=== PATIENT | male | born 1945 | race Caucasian/White ===

== ENCOUNTER 2024-04-14 05:59 | Day surgery (SDC) | payer OTHER ==
[~2024-04-14] VITALS: Ht 175.3 cm; Wt 76.7 kg
[~2024-04-14 05:59] MED LIST: ECOT81TA5 PO; ELIQ5TAB PO; HYDR12CA PO; LISI20TA33 PO; NITR0.4S14 SL; PANT40TA29 PO; PRAV80TA2 PO
[2024-04-14] MEDS ORDERED: ATROPINE SULFATE 1% OPHTH SOLN 2ML BTL OD SCH (06:00)
[2024-04-14] MEDS ORDERED: PHENYLEPHRINE 2.5% OPHTH SOL 2ML OD SCH (06:00)
[2024-04-14] MEDS ORDERED: PHENYLEPHRINE 10% OPHTH SOL 5ML OD PRN (06:00)
[2024-04-14] MEDS ORDERED: LIDOCAINE 3.5 % 1ML OPHTH TOPICAL GEL OU ONE (06:00)
[2024-04-14] MEDS ORDERED: TROPICAMIDE 1% OPHTH SOLN 15ML OD SCH (06:00)
[2024-04-14] MEDS ORDERED: OFLOXACIN 0.3 % (OCUFLOX) OPTH SOL 5ML OD ONE (06:00)
[2024-04-14] MEDS ORDERED: MIDAZOLAM INJ 2MG/2ML VIAL As Ordered ONE (07:39)
[2024-04-14] MEDS ORDERED: fentaNYL 100 MCG/2 ML INJECTION As Ordered ONE (07:39)
[2024-04-14] MEDS: BSS IRRIG/VANCO(10MG)/TOBRA(5MG)/EPINEPH(1:1000-0.5CC)500ML BAG-ORONLY As Ordered ONE (07:55)
[2024-04-14] MEDS: LIDOCAINE 1% SDV 5ML VIAL As Ordered ONE (07:55)
[2024-04-14] MEDS: CEFUROXIME 1MG/0.1ML INTRACAMERAL INJ As Ordered ONE (07:59)
[2024-04-14 08:05] VITALS: BP 158/83; TEMP 96.6; O2SAT 98
== END 2024-04-14 08:20 | disposition home or self-care (01) ==
LOC: M SDC 05:59
PROVIDERS: ATTEND Ophthalmology
DX: H25.11 Age-related nuclear cataract, right eye (principal); I25.10 Atherosclerotic heart disease of native coronary artery without angina pectoris; Z95.5 Presence of coronary angioplasty implant and graft; Z79.899 Other long term (current) drug therapy; Z79.01 Long term (current) use of anticoagulants; Z79.82 Long term (current) use of aspirin
CPT/HCPCS: 66984; J0697; J2250; J3010; V2632

== ENCOUNTER 2024-04-28 05:54 | Day surgery (SDC) | payer OTHER ==
[~2024-04-28] VITALS: Ht 175.3 cm; Wt 77.4 kg
[2024-04-28] MEDS ORDERED: PHENYLEPHRINE 10% OPHTH SOL 5ML OS PRN (06:00)
[2024-04-28] MEDS: LIDOCAINE 3.5 % 1ML OPHTH TOPICAL GEL OU ONE (06:53)
[2024-04-28] MEDS: PHENYLEPHRINE 2.5% OPHTH SOL 2ML OS SCH (06:53)
[2024-04-28] MEDS: TROPICAMIDE 1% OPHTH SOLN 15ML OS SCH (06:53)
[2024-04-28] MEDS: OFLOXACIN 0.3 % (OCUFLOX) OPTH SOL 5ML OS ONE (06:53)
[2024-04-28] MEDS: ATROPINE SULFATE 1% OPHTH SOLN 2ML BTL OS SCH (06:53)
[2024-04-28] MEDS ORDERED: MIDAZOLAM INJ 2MG/2ML VIAL As Ordered ONE (07:31)
[2024-04-28] MEDS: LIDOCAINE 1% SDV 5ML VIAL As Ordered ONE (07:44)
[2024-04-28] MEDS: CEFUROXIME 1MG/0.1ML INTRACAMERAL INJ As Ordered ONE (07:44)
[2024-04-28] MEDS: BSS IRRIG/VANCO(10MG)/TOBRA(5MG)/EPINEPH(1:1000-0.5CC)500ML BAG-ORONLY As Ordered ONE (07:44)
[2024-04-28 08:00] VITALS: BP 154/88; TEMP 97.4; O2SAT 99
== END 2024-04-28 08:10 | disposition home or self-care (01) ==
LOC: M SDC 05:54
PROVIDERS: ATTEND Ophthalmology
DX: H25.12 Age-related nuclear cataract, left eye (principal); I25.10 Atherosclerotic heart disease of native coronary artery without angina pectoris; Z79.01 Long term (current) use of anticoagulants; Z79.899 Other long term (current) drug therapy; Z79.82 Long term (current) use of aspirin; Z95.5 Presence of coronary angioplasty implant and graft; Z90.49 Acquired absence of other specified parts of digestive tract